=== PATIENT | male | born 1975 ===

== ENCOUNTER 2024-03-18 20:16 | Inpatient (IN) | payer MEDICARE, MEDICAID ==
[2024-03-19 02:39] VITALS: RESP 16; TEMP 97.4
[2024-03-19] MEDS ORDERED: haloperidoL 5 MG TAB PO PRN (03:27)
[2024-03-19] MEDS ORDERED: ACETAMINOPHEN TAB 325 MG TAB PO PRN (03:27)
[2024-03-19] MEDS ORDERED: HALOPERIDOL LACTATE 5 MG/ML 1 ML VIAL IM PRN (03:27)
[2024-03-19] MEDS ORDERED: LORazepam 1 MG TAB PO PRN (03:27)
[2024-03-19] MEDS ORDERED: traZODone HCL 50 MG TAB PO PRN (03:27)
[2024-03-19] MEDS ORDERED: MAG HYDROX/AL HYDROX/SIMETH 355 ML BOTTLE PO PRN (03:27)
[2024-03-19] MEDS ORDERED: LORazepam 2 MG/ML INJ IM PRN (03:27)
[2024-03-19] MEDS ORDERED: IBUPROFEN 600 MG TAB PO PRN (03:27)
[2024-03-19] MEDS ORDERED: MAGNESIUM HYDROXIDE 2,400 MG/30 ML CUP PO PRN (03:27)
[2024-03-19] MEDS: haloperidoL 5 MG TAB PO SCH (09:19)
[2024-03-19] MEDS: GABAPENTIN 300 MG CAP PO SCH (09:19)
[2024-03-19] MEDS: NICOTINE 14MG/24HR PATCH TRANSDERM SCH (09:22)
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
[2024-03-19] MEDS: LITHIUM CARBONATE ER 450 MG TABLET.ER PO SCH (14:01)
--- NOTE | 2024-03-20 00:48 | P.CONS ---
History of Present Illness - Reason for Consult Consult date: 03/19/24 - History of Present Illness The patient is a 49-year-old male with no known PMH who had initially presented to [facility] emergency room with complaints of abdominal pain and cramping. The patient was noted to be acting erratically and delusional and was subsequently admitted for further management. He was transferred to [facility] unit where he was seen and evaluated while accompanied by MHU RN. The patient denied any physical complaints at the time of interview. He does report that he had not been feeling quite like himself for several days. He does report smoking a pack of cigarettes daily but denies substance or alcohol use. Denies experiencing chest discomfort, shortness of breath, fever, chills, cough, nausea, vomiting, abdominal pain, diarrhea. Review of systems: Pertinent positives and negatives as discussed in HPI, a complete review of systems was performed and all other systems are negative. Physical examination: General: non toxic, no distress, appears at stated age, overweight Derm: no unusual rashes/lesions, no unusual ecchymoses, warm, dry Head: atraumatic, normocephalic, symmetric Eyes: EOMI, no lid lag, anicteric sclera ENT: Nose and ears atraumatic, no thrush, no pharyngeal erythema Neck: trachea midline, supple Mouth: no lip lesion, mucus membranes moist Cardiovascular: S1S2 reg, no murmur, no edema Lungs: CTA bilateral, no rhonchi, no rales , no accessory muscle use Abdominal: soft, nontender to palpation, no guarding Ext: no gross muscle atrophy, no contractures, Neuro: No gross focal neuro deficits noted Psych: Alert, oriented, appropriate affect Assessment: Nicotine dependence Bipolar disorder Plan: Advised on importance of cessation Defer management of bipolar disorder to primary psychiatry service Thank you for allowing us to participate in the care of this patient. We will follow peripherally. Do not hesitate to contact us with questions. Someone can be reached from the [facility] hospitalist group at all hours of the day at [phone]. Past Medical History Past Medical History: No Reported History History of Any Multi-Drug Resistant Organisms: None Reported Past Surgical History: No Surgical Hx Reported Past Anesthesia/Blood Transfusion Reactions: No Reported Reaction Past Psychological History: Schizophrenia Smoking Status: Current every day smoker Medications and Allergies Allergies Allergy/AdvReac Type Severity Reaction Status Date / Time Penicillins Allergy Unknown Verified 03/19/24 03:36 Physical Exam Vitals: Vital Signs Temp Pulse Resp BP Pulse Ox 03/19/24 02:17 97.4 F L 81 16 117/82 98
--- NOTE | 2024-03-20 11:10 | P.PN ---
Progress Note - Text Progress Note Date: 03/20/24 Interval History: Patient was seen wandering the hallways and was directable and agreeable to sp tia with newswriter in the office. The patient states that he is doing good today. He denies any irritability, and he states he feels focused and calm. Patient states that he slept well last night, and his appetite is good. He is focused on discharge, and states he needs to get back to work. At this time patient denies any suicidal or homicidal ideations, intent or plan. Patient denies any auditory, visual hallucinations and denies any paranoia or delusions. Patient denies any side effects from the medications and has been compliant with meds. MENTAL STATUS EXAM: General Appearance: Patient appears to be stated age is alert, bald, well built man. Several tattoos, dressed casually directable, and attempts to cooperate. Patient appears to have fair hygiene and grooming. Behavior: Patient is seated without any agitated behavior. calm and cooperative, focused on discharge, improving mildly Speech: Patient's speech is fluent and nonpressured. Mood/Affect: Patient reports their mood is good, affect is congruent and constricted. mildly improving Suicidality/Homicidality: Patient denies having any homicidal ideation intent or plan. Denies any suicidal ideations intent or plan Perceptions: Patient denies any visual hallucinations and denies any auditory hallucinations Though content/process: There is no evidence of any delusional thought content and thought process is linear and goal-directed. minimizing need for hospitalization, mildly improving Memory and concentration: AOX3, grossly intact for the purposes of this session. Judgment and insight: poor, mildly improving IMPRESSIONS: bipolar disorder, unspecified nicotine dependance PLAN: -Patient is admitted under voluntary status to MHU for stabilization of psychiatric symptoms and safety. -Medications : lithobid 450mg daily for mood stabilization, haldol 5mg bid for psychosis, trazodone 50mg qhs prn for sleep. -check lithium level Monday am prior to discharge. -Ativan and Haldol PRN for agitation/aggression -NRT - nicotine patch -SW on board for discharge planning. Encourage patient to participate in groups to work on coping skills. Likely discharge Monday, if patient continues to improve.
[2024-03-21] MEDS: NICOTINE GUM (POLACRILEX) 2 MG GUM BUCCAL PRN (10:48)
--- NOTE | 2024-03-21 10:53 | P.PN ---
Progress Note - Text Progress Note Date: 03/21/24 Interval History: Patient was seen resting in his room, and was directable and agreeable to speak with keno writer / runner at the bedside. The patient states that he is great today, and looking forward to discharge tomorrow. He denies any depression or anxiety. Patient states that he slept well last night, and his appetite is good. He stated that he has been talking to his family, and that is going good. At this time patient denies any suicidal or homicidal ideations, intent or plan. Patient denies any auditory, visual hallucinations and denies any paranoia or delusions. Patient denies any side effects from the medications and has been compliant with meds. MENTAL STATUS EXAM: General Appearance: Patient appears to be stated age is alert, bald, well built man. Several tattoos, dressed casually directable, and attempts to cooperate. Patient appears to have fair hygiene and grooming. Behavior: Patient is seated without any agitated behavior. calm and cooperative, focused on discharge, improving mildly Speech: Patient's speech is fluent and nonpressured. Mood/Affect: Patient reports their mood is good, affect is congruent and constricted. mildly improving Suicidality/Homicidality: Patient denies having any homicidal ideation intent or plan. Denies any suicidal ideations intent or plan Perceptions: Patient denies any visual hallucinations and denies any auditory hallucinations Though content/process: There is no evidence of any delusional thought content and thought process is linear and goal-directed. minimizing need for hospitalization, mildly improving Memory and concentration: AOX3, grossly intact for the purposes of this session. Judgment and insight: mildly improving IMPRESSIONS: bipolar disorder, unspecified nicotine dependance PLAN: -Patient is admitted under voluntary status to MHU for stabilization of psychiatric symptoms and safety. -Medications : lithobid 450mg daily for mood stabilization, haldol 5mg bid for psychosis, trazodone 50mg qhs prn for sleep. -check lithium level Monday am prior to discharge. -Ativan and Haldol PRN for agitation/aggression -NRT - nicotine patch -SW on board for discharge planning. Encourage patient to participate in groups to work on coping skills. Likely discharge Monday, if patient continues to improve.
[2024-03-22 06:48] VITALS: BP 114/72; PULSE 72
--- NOTE | 2024-03-22 12:17 | P.DS ---
Providers Date of admission: 03/19/24 02:12 Expected date of discharge: 03/22/24 Attending physician: Franco Valentine MD Consults: 03/19/24 03:27 Consult Physician Routine Consulting Provider: Adolfo Casiano Consult Reason/Comments: Medical managment Do you want consulting provider notified?: Yes Primary care physician: Stated None - Discharge Diagnosis(es) (1) Bipolar disorder Current Visit: Yes Status: Acute Priority: High (2) Nicotine dependence Current Visit: Yes Status: Acute Priority: Low Hospital Course: Admission HPI: Admission note was completed by medical underwriter" Patient presented to the hospital on 03/18, as a direct admit from [facility]. As per EPS note, "Patient transfer from [facility]. Patient presented to ED for abdominal pain and cramping. Patient was medically clear and admitted for delusional behavior and agitation. Patient agitated and required restraints in ED. Patient denies suicidal and homicidal ideations. Patient denies auditory or visual hallucinations at this time. Patient has a history of hallucinations and lyly in the past, but nothing current. Patient presented for worsening behaviors and paranoid delusions. Patient has history of paranoid schizophrenia and per father has had worsening paranoia and behaviors. Patient has poor insight into condition and need for treatment and hospitalization. " Upon today's assessment, he said he went to [facility], because he was having hot flashes and a dry mouth, and ended up in the psych unit. He states he is not wanting to harm anyone, or himself, or not hearing voices, so he is puzzled why he is here. He states he ripped the needles out of him, then they restrained him and sent him here. He is trying to figure out what is going on. He states he has kids, bills, responsibilities. He is agreeable to treatment, and agreeable to medication changes. Patient was somewhat irritable with medical underwriter and mionimized most of his symptoms, focused on discharge. fairly impuslive during conversation and appeared to be upset being in the hospital. . Patient denies any suicidal or homicidal ideations intent or plan. At this time patient denies any auditory or visual hallucinations. Pat ient denies any flight of ideas racing thoughts and increased in goal directed behavior. Patient UDS was positive for amphetamines, from prescribes adderall . Patient states he smokes cigarettes." Hospital course: Upon admission to the unit patient was directable and agreeable to commence treatment and signed adult voluntary form. Patient got along well with other patients on the unit and followed unit protocol. Patient was compliant with the medications and denied any side effects throughout hospital course. Patient was started on his home dose of Haldol 5 mg twice daily for psychosis/mood stabilization, patient was agreeable to be started on Lithobid 450 mg daily for mood stabilization. Patient had a lithium level drawn on the day of discharge in the morning, level was below 0.2. Patient spoke of his stressors and engaged in therapy both group and individual. Patient was also seen by medical team for history and physical exam. Throughout the course of the hospitalization patient gradually improved with regards to mood, anxiety, aggression/irritability, sleep and returned back to their baseline level of functioning. On the day of discharge patient denied any suicidal or homicidal ideations intent or plan denied any auditory or visual hallucinations. Patient endorsed wanting to live for his health and family. The patient denied any access to guns or weapons. Patient denied any paranoia and did not endorse any delusions. Patient does not have a significant history of substance abuse and was counseled on abstaining from all substances including alcohol and marijuana. Patient was also counseled on the medications and need for regular compliance and was encouraged to follow-up with their outpatient appointment for mental health and also for primary care. Prior to discharge a family meeting will be arranged by social media editor to answer any questions and ensure safety upon discharge. Patient will be discharged back home today. He will be following up with his outpatient provider through [facility]. Mental status exam: General Appearance: Patient appears to be bald, stated age is alert, pleasant, and cooperative. Patient is in no acute distress and has improved hygiene and grooming Behavior: Patient is calmly seated without any agitated behavior. Speech: Patient's speech is fluent and nonpressured. Mood/Affect: Patient reports their mood is "good", affect is congruent Suicidality/Homicidality: Patient denies having any suicidal or homicidal ideation intent or plan. Perceptions: Patient denies any auditory or visual hallucinations. Though content/process: There is no evidence of any delusional thought content and thought process is linear and goal-directed. More future oriented Memory and concentration: AOX3, grossly intact for the purposes of this session. Can spell "WORLD" backwards correctly. Judgment and insight: improved with guarded prognosis Impression: bipolar disorder, unspecified nicotine dependance Plan: -Continue with discharge today as patient has improved and stabilized psychiatrically and is not currently an imminent threat to himself and/or others. Patient will remain at chronically elevated risk for harm to self and/or others due to his impulsivity -Continue medications: Lithobid 450 mg daily for mood stabilization, Haldol 5 mg twice daily for psychosis/mood stabilization -Patient was counseled on the need for medication compliance and appropriate follow-up at mental health and also primary care for medical issues. Patient verbalized understanding and agreed. -Social work to arrange for and conduct family meeting to ensure safety upon discharge and answer any questions/concerns. Social work also to arrange for patients follow up appointments for psychiatric care along with follow up with primary care provider. -Patient counseled on abstaining from recreational drugs and marijuana and alcohol. Was informed/educated on the adverse effects on their physical and mental health. Patient verbally agreed and understood. -Patient was instructed to return to the hospital or seek immediate medical care if their psychiatric or medical symptoms do worsen or reoccur. Allergies Allergy/AdvReac Type Severity Reaction Status Date / Time Penicillins Allergy Unknown Verified 03/19/24 03:36 Laboratory Results [place] <0.2 mmol/L 03/22/24 06:40 Vital Signs Temp 97.4 F L 03/19/24 02:17 Pulse 72 03/22/24 06:47 Resp 16 03/19/24 02:17 BP 114/72 03/22/24 06:47 Pulse Ox 98 03/19/24 02:17 FiO2 Patient Condition at Discharge: Stable Plan - Discharge Summary Discharge Rx Participant: Yes New Discharge Prescriptions: New [place] Carbonate ER [Lithobid] 450 mg PO DAILY 30 Days #30 tab Gabapentin [Neurontin] 300 mg PO TID 15 Days #45 cap Nicotine 14Mg/24Hr Patch [Habitrol] 1 patch TRANSDERM DAILY 14 Days #14 patch Nicotine Gum (Polacrilex) [Nicorette] 2 mg BUCCAL Q4HR PRN 30 Days #180 pieceofgum PRN Reason: Nicotine Cravings haloperidoL [Haldol] 5 mg PO BID 30 Days #60 tab Discharge Medication List Gabapentin [Neurontin] 300 mg PO TID 15 Days #45 cap 03/22/24 [Rx] [place] Carbonate ER [Lithobid] 450 mg PO DAILY 30 Days #30 tab 03/22/24 [Rx] Nicotine 14Mg/24Hr Patch [Habitrol] 1 patch TRANSDERM DAILY 14 Days #14 patch 03/22/24 [Rx] Nicotine Gum (Polacrilex) [Nicorette] 2 mg BUCCAL Q4HR PRN 30 Days #180 pieceofgum 03/22/24 [Rx] haloperidoL [Haldol] 5 mg PO BID 30 Days #60 tab 03/22/24 [Rx] Follow up Appointment(s)/Referral(s): [facility] [Other] - 03/27/24 9:30 am [facility] [Other] - 1 Week Patient Instructions/Handouts: How to Stop Smoking (DC), Bipolar Disorder (DC) Activity/Diet/Wound Care/Special Instructions: Avoid the use of street drugs and alcohol. Take all medications as prescribed. When you are in need of refills on your medications, please contact your medical provider and/or outpatient psychiatrist/provider to have this done. Please go to your scheduled outpatient appointment for aftercare treatment. If symptoms return or become worse, call the crisis line at and/or go to the nearest emergency room for evaluation. National Suicide Hotline 98 Discharge Disposition: HOME SELF-CARE
== END 2024-03-22 13:05 | disposition home or self-care (01) | DRG 885 ==
LOC: 3MHU 03-19 02:12
PROVIDERS: ADMIT Psychiatry & Neurology Psychiatry; ATTEND Psychiatry & Neurology Psychiatry
DX: F31.9 Bipolar disorder, unspecified (principal); F17.210 Nicotine dependence, cigarettes, uncomplicated; F20.0 Paranoid schizophrenia; Z78.1 Physical restraint status
CPT/HCPCS: 80178